=== PATIENT | male | born 1985 ===

== ENCOUNTER 2017-08-07 07:18 | Emergency (ER) | payer OTHER, BC ==
[2017-08-07 07:22] VITALS: BMI 22.1
[2017-08-07 07:23] VITALS: BP 155/91; PULSE 89; RESP 16; TEMP 97.5; O2SAT 17
[2017-08-07] MEDS ORDERED: Tdap Vaccine 0.5 ml Vial (10-64 yrs) IM ONE ×2 (07:45→08:31)
--- NOTE | 2017-08-07 07:47 | ED PDOC ---
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 Sustained avulsion and laceration to distal phalanx left ring finger. Unknown date of last tetanus vaccine. PMD: Provider TBD Past Medical History Reviewed: Historical Data, Nursing Documentation, Vital Signs Vital Signs: Last Vital Signs Temp 97.5 F L 08/07/17 07:23 Pulse 89 08/07/17 07:23 Resp 16 08/07/17 07:23 BP 155/91 H 08/07/17 07:23 Pulse Ox 17 L 08/07/17 07:23 - Medical History PMH: No Chronic Diseases - Surgical History Surgical History: No Surg Hx - Family History Family History: States: Unknown Family Hx - Home Medications Home Medications: Ambulatory Orders Medication Instructions Recorded Cephalexin [cephalexin] 500 mg PO Q6 #40 cap 08/07/17 traMADol [Ultram] 50 mg PO Q8 #10 tab 08/07/17 - Allergies Allergies/Adverse Reactions: Allergies Allergy/AdvReac Type Severity Reaction Status Date / Time No Known Allergies Allergy Verified 08/07/17 07:28 Review of Systems ROS Statement: Except As Marked, All Systems Reviewed And Found Negative Musculoskeletal: Positive for: Other (Avulsion and laceration to distal phalanx left ring finger) Physical Exam - Reviewed Nursing Documentation Reviewed: Yes Vital Signs Reviewed: Yes - Physical Exam Extremity: Positive for: Other (Left Hand, ring finger: Partial degloving of distal phalanx with bone exposed. Unable to flex. Base attached on extensor surface. Unable to flex or extend DIP.) - ECG O2 Sat by Pulse Oximetry: 17 Medical Decision Making Medical Decision Making: Plan: - Toradol 30 mg IM - Left Hand 4th digit X-Ray - Adacel (10-64 years) 0.5 ml IM Time: 08:29 - Ancef 1 gm Sodium Chloride 0.9% 100 ml IVPB Time: 08:[address] Griggs. Time: 08:33 Lidocaine/Epinephrine 3 ml IJ Time: 08:39 Lidocaine/Epinephrine 3 ml IJ Evaluated and sutured by Dr. Griggs Scribe Attestation: Documented by Pritesh Garcia, acting as a scribe for Slick Miller MD Provider Scribe Attestation: All medical record entries made by the Scribe were at my direction and personally dictated by me. I have reviewed the chart and agree that the record accurately reflects my personal performance of the history, physical exam, medical decision making, and the department course for this patient. I have also personally directed, reviewed, and agree with the discharge instructions and disposition. Disposition - Clinical Impression Clinical Impression: Finger laceration, Degloving injury of finger, Finger fracture - Patient ED Disposition Is Patient to be Admitted: No Counseled Patient/Family Regarding: Studies Performed, Diagnosis, Need For Followup, Rx Given - Disposition Referrals: Demetrius Griggs MD [Staff Provider] - Disposition: Routine/Home Disposition Time: 10:53 Condition: FAIR Prescriptions: Cephalexin [cephalexin] 500 mg PO Q6 #40 cap traMADol [Ultram] 50 mg PO Q8 #10 tab Instructions: Finger Fracture (DC), Laceration Repair Forms: [employer] ([place])
[2017-08-07] MEDS ORDERED: ceFAZolin 1 GM in Sodium Chloride 0.9% 100 ML IVPB ONE (08:29)
[2017-08-07] MEDS ORDERED: Lidocaine 2% w Epi 1:100,000 Inj IJ ONE (08:33)
[2017-08-07] MEDS ORDERED: Lidocaine 2% w Epi 1:200,000 Pf Inj IJ ONE (08:39)
--- NOTE | 2017-08-07 10:55 | RAD ---
PROCEDURE: Left ring finger radiographs. HISTORY: trauma COMPARISON: None. TECHNIQUE: AP radiograph of the left hand, as well as spot oblique and lateral images of left ring finger were obtained. FINDINGS: LEFT RING FINGER: Comminuted and displaced fracture deformity of the distal tuft mid aspect of the distal phalanx 4th finger with near complete amputation changes of the distal 4th finger. Surrounding soft tissue swelling and subcutaneous air JOINTS: Joint spaces preserved SOFT TISSUES: As above OTHER FINDINGS: None. IMPRESSION: Comminuted displaced fracture deformity distal tuft and mid aspect of the distal phalanx 4th finger with near complete of amputation changes of the distal finger. Surrounding soft tissue swelling and subcutaneous emphysema.
== END 2017-08-07 11:20 | disposition home or self-care (01) ==
LOC: H.ER 07:18
DX: S61.215A Laceration without foreign body of left ring finger without damage to nail, initial encounter (principal); W26.0XXA Contact with knife, initial encounter; Y99.0 Civilian activity done for income or pay
CPT/HCPCS: 12001; 73140; 90471; 90715; 96365; 96372; 99283; J0690; J1885